=== PATIENT | female | born 2000 | race Caucasian/White ===

== ENCOUNTER 2023-12-01 09:42 | Outpatient (REF) | payer OTHER, SELFPAY ==
--- NOTE | ~2023-12-01 | US_ITS ---
EXAMINATION: US ABDOMEN LIMITED CLINICAL INFORMATION: Abdominal pain, nausea/vomiting/diarrhea. COMPARISON: None available. TECHNIQUE: Real-time imaging of the right upper quadrant abdominal viscera. FINDINGS: PANCREAS: Limited visualization. LIVER: The liver is normal in size. The liver contour is normal. Parenchymal echogenicity is normal. Hyperechoic mass in the left hepatic lobe measures 1.7 x 1.6 x 1.3 cm. There is no intrahepatic biliary duct dilatation seen. GALLBLADDER: Possible cystic change of the gallbladder fundus. The gallbladder is physiologically distended without evidence of sludge, wall thickening or pericholecystic fluid. COMMON BILE DUCT: Normal in caliber measuring 0.3 cm in diameter. RIGHT KIDNEY: No hydronephrosis. No renal calculi or focal parenchymal lesions. The kidney measures 10.6 cm in maximum dimension. FREE FLUID: None. US/US abdomen limited IMPRESSION: Hyperechoic hepatic mass measuring 1.7 x 1.6 x 1.3 cm. This may represent a hemangioma. MRI abdomen may be considered for confirmation. Possible gallbladder adenomyomatosis.
== END 2023-12-01 09:43 | disposition home or self-care (01) ==
LOC: HO.UMASIMG 09:42
PROVIDERS: Visit Provider Nurse Practitioner
DX: R10.9 Unspecified abdominal pain (principal); R19.7 Diarrhea, unspecified; N39.0 Urinary tract infection, site not specified
CPT/HCPCS: 76705